=== PATIENT | male | born 1990 | race African-American/Black ===

== ENCOUNTER 2021-10-23 12:40 | Emergency (ER) | payer OTHER ==
[~2021-10-23] VITALS: Ht 175.3 cm; Wt 61.8 kg
[2021-10-23 12:50] VITALS: BP 122/71
== END 2021-10-23 14:43 | disposition left against medical advice (07) ==
LOC: EMS 12:40
DX: R21 Rash and other nonspecific skin eruption (principal); Z53.21 Procedure and treatment not carried out due to patient leaving prior to being seen by health care provider

== ENCOUNTER 2021-10-29 12:18 | Emergency (ER) | payer OTHER ==
[~2021-10-29] VITALS: Ht 177.8 cm; Wt 68.2 kg
[2021-10-29 12:23] VITALS: BP 112/57
[2021-10-29] MEDS ORDERED: KETOROLAC TROMETHAMINE 30 MG/ML VIAL IM ONE (13:15)
== END 2021-10-29 14:04 | disposition home or self-care (01) ==
LOC: EMS 12:21
DX: S90.31XA Contusion of right foot, initial encounter (principal); F12.90 Cannabis use, unspecified, uncomplicated; X58.XXXA Exposure to other specified factors, initial encounter; Y93.89 Activity, other specified; Y92.89 Other specified places as the place of occurrence of the external cause; Y99.8 Other external cause status
CPT/HCPCS: 73630; 96372; 99283; J1885